=== PATIENT | male | born 1985 | race Caucasian/White ===

== ENCOUNTER → 2016-11-17 | Outpatient (CLI) | payer OTHER | LOC: BMCIMAGING 12:14 | PROVIDERS: ATTEND Internal Medicine | DX: J98.11 Atelectasis (principal); J18.9 Pneumonia, unspecified organism ==

== ENCOUNTER → 2016-11-27 | Outpatient (CLI) | payer OTHER | LOC: BMCIMAGING 09:10 | PROVIDERS: ATTEND Internal Medicine | DX: R91.8 Other nonspecific abnormal finding of lung field (principal) ==

== ENCOUNTER → 2016-12-01 | Outpatient (CLI) | payer OTHER | LOC: CIMAGING 11:12 | PROVIDERS: ATTEND Internal Medicine | DX: J18.9 Pneumonia, unspecified organism (principal); R63.4 Abnormal weight loss | CPT/HCPCS: 71250-PO ==

== ENCOUNTER → 2016-12-29 | Outpatient (CLI) | payer OTHER | LOC: BMCIMAGING 10:54 | PROVIDERS: ATTEND Internal Medicine | DX: Z09 Encounter for follow-up examination after completed treatment for conditions other than malignant neoplasm (principal) ==